=== PATIENT | female | born 1945 | race Caucasian/White ===

== ENCOUNTER 2021-02-21 10:53 | Outpatient (CLI) | payer MEDICARE, OTHER ==
[2021-02-21] MEDS ORDERED: OMNIPAQUE 350 MG/ML, 150 ML BOTTLE ONE (11:00)
[2021-02-24] MEDS ORDERED: LOSA25TA25 PO (07:10)
[2021-02-24] MEDS ORDERED: ROSU10TA2 PO (07:10)
[2021-02-24] MEDS ORDERED: SENN-190 PO (07:10)
[2021-02-24] MEDS ORDERED: FLEC50TA25 PO (07:10)
[2021-02-24] MEDS ORDERED: APIX5TAB PO (07:10)
[2021-02-24] MEDS ORDERED: ALBU18HF INH (07:10)
[2021-02-24] MEDS ORDERED: ASPI81TA45 PO (07:10)
[2021-02-24] MEDS ORDERED: LORA-247 PO (07:10)
[2021-02-24] MEDS ORDERED: HYDROCHLOROTH12.5 MG PO (07:10)
[2021-02-24] MEDS ORDERED: METO50TA82 PO (07:10)
[2021-02-24] MEDS ORDERED: CHOL10003 PO (07:10)
[2021-02-24] MEDS ORDERED: ACETAMINOPHEN 325 MG TABLET ONE (14:14)
[2021-02-25] MEDS ORDERED: COLC0.6C3 PO (08:49)
== END 2021-02-21 23:59 | disposition home or self-care (01) ==
LOC: CFH 10:53
PROVIDERS: ATTEND Internal Medicine Cardiovascular Disease
DX: I48.91 Unspecified atrial fibrillation (principal); J98.4 Other disorders of lung
CPT/HCPCS: 75572; 82565; Q9967; U0005; U0003

== ENCOUNTER 2021-02-24 06:17 | Observation (INO) | payer MEDICARE, OTHER ==
[~2021-02-24] VITALS: Ht 170.2 cm; Wt 81.8 kg
[2021-02-25 07:12] VITALS: BP 118/81
== END 2021-02-25 10:50 | disposition home or self-care (01) ==
LOC: CACL 06:17 → 5SO 12:11
PROVIDERS: ADMIT Internal Medicine Cardiovascular Disease; ATTEND Internal Medicine Cardiovascular Disease
DX: I48.91 Unspecified atrial fibrillation (principal); Z20.822 Contact with and (suspected) exposure to COVID-19; I48.3 Typical atrial flutter; I10 Essential (primary) hypertension; Z79.01 Long term (current) use of anticoagulants; Z79.899 Other long term (current) drug therapy; Z79.82 Long term (current) use of aspirin